=== PATIENT | female | born 1980 | race Caucasian/White ===

== ENCOUNTER 2020-11-28 05:39 | Emergency (ER) | payer OTHER ==
[~2020-11-28 05:39] MED LIST: BENTYL 20MG TAB20 MG PO; ZOFRAN ODT 4 MG4 MG SL
[2020-11-28 06:17] LABS: HEMOGLOBIN 13.1 gm/dl (12.3-15.3); RED BLOOD COUNT 4.39 M/UL (4.00-5.10); WHITE BLOOD COUNT 9.2 K/UL (4.5-11.0)
[2020-11-28 06:38] LABS: BUN/CREATININE RATIO 11 (0-10)
[2020-11-28] MEDS ORDERED: AUGMENTIN 875-1 EACH PO (10:17)
== END 2020-11-28 10:30 | disposition home or self-care (01) ==
LOC: ER1 05:39
PROVIDERS: Emergency Medicine
DX: K52.9 Noninfective gastroenteritis and colitis, unspecified (principal); Z88.2 Allergy status to sulfonamides; Z88.8 Allergy status to other drugs, medicaments and biological substances
CPT/HCPCS: 80053; 81001; 83690; 84703; 85025; 96374; 96375; 99284; J2270; J2405; Q9967